=== PATIENT | male | born 2005 | race Two or more races ===

== ENCOUNTER 2024-12-17 06:54 | Emergency (ER) | payer BC ==
[~2024-12-17] VITALS: Ht 172.7 cm; Wt 63.5 kg
[2024-12-17 07:21] VITALS: BP 91/52; O2SAT 100
[2024-12-17] MEDS ORDERED: FAMOTIDINE/PF 20 MG/2 ML VIAL IV SCH (07:45)
[2024-12-17] MEDS ORDERED: KETOROLAC TROMETHAMINE 60 MG VIAL IM ONE (07:45)
[2024-12-17] MEDS ORDERED: ONDANSETRON HCL 2 MG/ML VIAL IV SCH (07:45)
[2024-12-17] MEDS ORDERED: 0.9 % SODIUM CHLORIDE 1,000 ML IV SCH (07:45)
[2024-12-17] MEDS ORDERED: DEXTROSE 5 % AND 0.9 % NACL 1,000 ML IV SCH (07:45)
[2024-12-17 08:09] LABS: BASO % 0.8 % (0.1-1.2); EOS # 0.03 (0.04-0.54); EOS % 0.5 % (0.7-7.0); LYMPH # 1.40 (1.18-3.74); LYMPH % 23.6 % (19.3-53.1); MEAN PLATELET VOLUME 9.70 fl (9.4-12.4); MONO # 0.53 (0.24-0.82); MONO % 8.9 % (4.7-12.5); NEUT # 3.91 (1.56-6.13); NEUT % 65.9 % (34.0-71.1); RED CELL DISTRIBUTION WIDTH 12.1 % (11.6-14.4)
[2024-12-17 08:44] LABS: ALT/SGPT 15.0 U/L (12-78); AST/SGOT 9.0 U/L (15-37); BILIRUBIN TOTAL 1.07 mg/dL (0.3-1.2); BUN CREA RATIO 10.0 (7.0-25.0); CREATININE SERUM 1.12 mg/dL (0.70-1.30); GFR 83.58; GLOBULINA 2.6 G/DL (2.4-3.5); GLUCOSE FASTING 134.0 mg/dL (65-100); OSMOLALITY SERUM 284.0 MOSM/KG (275-295)
[2024-12-17 09:02] LABS: URINE BACTERIA 183.5 uL (0.0-1933); URINE CAST 6.59 uL (0.0-1.40); URINE EPITHELIAL CELLS 24.4 uL (0.0-38.8); URINE RBC 3623.0 uL (0.0-20.8); URINE WBC 56.7 uL (0.0-23.2)
[2024-12-17 09:43] LABS: URINE APPEARANCE TURBID; URINE BILIRRUBIN MODERATE (NEGATIVE); URINE BLOOD MODERATE; URINE COLOR BROWN; URINE GLUCOSE NEGATIVE (NEGATIVE); URINE KETONE 40 (NEGATIVE); URINE LEUKOCYTE NEGATIVE; URINE NITRATE NEGATIVE; URINE PROTEIN 100 (NEGATIVE); URINE UROBILINOGEN 1.0 E.U./dl
[2024-12-17 10:09] LABS: URINE CRYSTALS FEW /HPF; URINE MUCUS MODERATE
[2024-12-17] MEDS ORDERED: TAMSULOSIN HCL 0.4 MG CAP PO SCH (11:23)
[2024-12-17] MEDS ORDERED: CEFTRIAXONE SODIUM 2,000 MG VIAL IV ONE (11:30)
[2024-12-17] MEDS ORDERED: CEFTRIAXONE SODIUM 2,000 MG VIAL ONE ×2 (11:53)
== END 2024-12-17 13:37 | disposition home or self-care (01) ==
LOC: EMR PED 09:03
PROVIDERS: Emergency Medicine Pediatric Emergency Medicine
DX: N20.0 Calculus of kidney (principal)